=== PATIENT | female | born 1995 | race Asian ===

== ENCOUNTER 2017-10-26 12:28 | Outpatient (CLI) | payer OTHER ==
[2017-10-26 13:34] LABS: ADD UMIC NO; UR ASCORBIC ACID NEGATIVE (NEGATIVE); UR BACTERIA FEW /HPF (NONE SEEN); UR BILIRUBIN (Dip) NEGATIVE (NEGATIVE); UR BLOOD (Dip) NEGATIVE (NEGATIVE); UR CLARITY SLIGHTLY CLOUDY (CLEAR); UR COLOR YELLOW (YELLOW); UR GLUCOSE (Dip) NEGATIVE (NEGATIVE); UR KETONES (Dip) NEGATIVE (NEGATIVE); UR LEUKOCYTE ESTERASE (Dip) NEGATIVE Leu/ul (NEGATIVE); UR NITRITE (Dip) NEGATIVE (NEGATIVE); UR RBC 1 /HPF (0-5); UR SPECIFIC GRAVITY (Dip) 1.009 (1.003-1.030); UR TOTAL PROTEIN (Dip) NEGATIVE (NEGATIVE); UR UROBILINOGEN (Dip) NEGATIVE (NEGATIVE); UR WBC 1 /HPF (0-5)
== END 2017-10-26 18:22 | disposition home or self-care (01) ==
LOC: OBT 12:28 → L-D 12:32 → OBT 18:22
DX: O62.9 Abnormality of forces of labor, unspecified (principal); Z3A.38 38 weeks gestation of pregnancy
CPT/HCPCS: 76818; 81001; 81003

== ENCOUNTER 2017-10-27 06:47 | Inpatient (IN) | payer OTHER ==
[2017-10-27] MEDS ORDERED: OXYTOCIN 30 UNITS/LR 500 ML IV (07:30)
[2017-10-27] MEDS ORDERED: LIDOCAINE 1% (MPF) 30 ML INJ INJ (07:30)
[2017-10-27] MEDS ORDERED: IBUPROFEN 600 MG TAB PO (07:30)
[2017-10-27] MEDS ORDERED: BUTORPHANOL 2 MG INJ IV (07:30)
[2017-10-27] MEDS ORDERED: MISOPROSTOL 200 MCG TAB PR (07:30)
[2017-10-27] MEDS ORDERED: METHYLERGONOVINE 0.2 MG INJ IM (07:30)
[2017-10-27] MEDS ORDERED: CARBOPROST 250 MCG INJ IM (07:30)
[2017-10-27] MEDS ORDERED: AMPICILLIN 2 GM/NS (PMX) 100 ML (07:40)
[2017-10-27] MEDS: LACTATED RINGER'S 1,000 ML IV ×3 (07:59→18:30)
[2017-10-27] MEDS: AMPICILLIN 2 GM/NS (PMX) 100 ML IV (08:00)
[2017-10-27 08:12] LABS: ADD MAN DIFF? NO
[2017-10-27 08:16] LABS: ABNORMAL IP MESSAGE 1; BASOPHIL # 0.1 10^3/ul (0.0-0.1); BASOPHILS % 0.7 % (0.0-2.0); EOSINOPHILS # 0.1 10^3/ul (0.0-0.5); EOSINOPHILS % 0.5 % (0.0-7.0); HEMOGLOBIN 12.8 g/dl (12.0-16.0); LYMPHOCYTES # 2.3 10^3/ul (0.8-2.9); LYMPHOCYTES % 12.5 % (15.0-51.0); MEAN CORPUSCULAR HEMOGLOBIN 29.8 pg (29.0-33.0); MEAN CORPUSCULAR HGB CONC 33.7 g/dl (32.0-37.0); MEAN CORPUSCULAR VOLUME 88.6 fl (82.0-101.0); MEAN PLATELET VOLUME 10.2 fl (7.4-10.4); MONOCYTE # 1.2 10^3/ul (0.3-0.9); MONOCYTES % 6.3 % (0.0-11.0); NEUTROPHIL # 13.5 10^3/ul (1.6-7.5); NEUTROPHILS % 74.4 % (39.0-77.0); PLATELET COUNT 241 10^3/UL (140-415); RED BLOOD COUNT 4.29 10^6/ul (4.20-5.40); RED CELL DISTRIBUTION WIDTH 13.6 % (11.5-14.5)
[2017-10-27 08:16] LABS: WHITE BLOOD COUNT 18.2 10^3/ul (4.8-10.8)
[2017-10-27 08:18] LABS: POSITIVE DIFF @See below
[2017-10-27 08:35] LABS: INR 0.84; PROTIME 11.6 Sec (11.9-14.9); PT RATIO 0.9
[2017-10-27 08:36] LABS: PARTIAL THROMBOPLASTIN TIME 29.1 Sec (25.0-35.0)
[2017-10-27] MEDS ORDERED: FENTAnyl 2MCG/ML-ROPIV 0.2% 100 ML (08:52)
[2017-10-27 09:07] LABS: ANISOCYTOSIS 1+ (0-0); BAND NEUTROPHILS #M 0.3 10^3/ul (0.0-0.6); BAND NEUTROPHILS % (M) 2 % (0-4); BASOPHIL #M 0.1 10^3/ul (0.0-0.0); BASOPHILS % (M) 1 % (0-2); EOSINOPHILS % (M) 1 % (0-7); GIANT THROMBO% (M) 2 % (0-0); LYMPHOCYTES #M 1.8 10^3/ul (0.8-2.9); LYMPHOCYTES % (M) 10 % (15-51); MICROCYTOSIS 1+ (0-0); MONOCYTE #M 0.7 10^3/ul (0.3-0.9); MONOCYTES % (M) 4 % (0-11); MYELOCYTES #M 0.5 10^3/ul (0.0-0.0); MYELOCYTES % (M) 3 % (0-0); PLATELET ESTIMATE NORMAL; POLYCHROMASIA 2+ (0-0); REACTIVE LYMPHOCYTES #M 0.1 10^3/ul (0.0-0.0); REACTIVE LYMPHOCYTES% (M) 1 % (0-0); SEG NEUT #M 14.3 10^3/ul (1.6-7.5); SEGMENTED NEUTROPHILS (M) % 78 % (39-77); SMUDGE%M 2 % (0-0)
[2017-10-27 09:23] LABS: HEPATITIS B SURFACE ANTIGEN NEGATIVE (NEGATIVE)
[2017-10-27] MEDS ORDERED: NALOXONE (0.4 MG/ML) INJ IV (09:30)
[2017-10-27 10:27] LABS: AMPHETAMINE/METHAMPHETAMINE Negative (NEGATIVE); BARBITURATES Negative (NEGATIVE); BENZODIAZEPINES Negative (NEGATIVE); CANNABINOIDS Negative (NEGATIVE); COCAINE Negative (NEGATIVE); OPIATES Negative (NEGATIVE)
[2017-10-27] MEDS: AMPICILLIN 1 GM/NS (PMX) 50 ML IV ×2 (12:02→16:00)
[2017-10-27] MEDS: OXYTOCIN 30 UNITS/LR 500 ML IV ×3 (12:17→20:39)
[2017-10-27 15:47] LABS: RAPID PLASMA REAGIN NONREACTIVE (NR)
[2017-10-27] MEDS: FENTAnyl 2MCG/ML-ROPIV 0.2% 100 ML BAG EPI (16:02)
[2017-10-28] MEDS ORDERED: OXYTOCIN 30 UNITS/LR 500 ML IV
[2017-10-28] MEDS ORDERED: HYDROCODONE/APAP (5/325) TAB PO
[2017-10-28] MEDS ORDERED: CARBOPROST 250 MCG INJ IM
[2017-10-28] MEDS ORDERED: DIBUCAINE 1% 30 GM OINT PR
[2017-10-28] MEDS ORDERED: METHYLERGONOVINE 0.2 MG INJ IM
[2017-10-28] MEDS ORDERED: MISOPROSTOL 200 MCG TAB PR
[2017-10-28] MEDS ORDERED: ACETAMINOPHEN 325 MG TAB PO
[2017-10-28] MEDS: BENZOCAINE 20% 56 ML SPRAY TOP (00:25)
[2017-10-28] MEDS: WITCH HAZEL/GLYCERIN PAD PR (00:25)
[2017-10-28] MEDS: LANOLIN 7 GM TUBE TOP (00:26)
[2017-10-28] MEDS: IBUPROFEN 600 MG TAB PO ×4 (00:26→17:31)
[2017-10-28] MEDS: LACTATED RINGER'S 1,000 ML IV* (07:34)
[2017-10-28 07:45] LABS: ADD MAN DIFF? NO
[2017-10-28 07:50] LABS: ABNORMAL IP MESSAGE 1; BASOPHIL # 0.1 10^3/ul (0.0-0.1); BASOPHILS % 0.3 % (0.0-2.0); EOSINOPHILS # 0.1 10^3/ul (0.0-0.5); EOSINOPHILS % 0.3 % (0.0-7.0); HEMATOCRIT 34.9 % (37.0-47.0); HEMOGLOBIN 11.9 g/dl (12.0-16.0); LYMPHOCYTES # 2.5 10^3/ul (0.8-2.9); LYMPHOCYTES % 10.4 % (15.0-51.0); MEAN CORPUSCULAR HEMOGLOBIN 30.2 pg (29.0-33.0); MEAN CORPUSCULAR HGB CONC 34.1 g/dl (32.0-37.0); MEAN CORPUSCULAR VOLUME 88.6 fl (82.0-101.0); MONOCYTE # 1.9 10^3/ul (0.3-0.9); MONOCYTES % 7.9 % (0.0-11.0); NEUTROPHIL # 18.8 10^3/ul (1.6-7.5); NEUTROPHILS % 77.6 % (39.0-77.0); PLATELET COUNT 201 10^3/UL (140-415); RED BLOOD COUNT 3.94 10^6/ul (4.20-5.40); RED CELL DISTRIBUTION WIDTH 13.5 % (11.5-14.5)
[2017-10-28 07:50] LABS: WHITE BLOOD COUNT 24.3 10^3/ul (4.8-10.8)
[2017-10-28 07:55] LABS: POSITIVE DIFF @See below
[2017-10-28] MEDS: SENNA/DOCUSATE NA (8.6MG/50MG) TAB PO (09:58)
[2017-10-29] MEDS: IBUPROFEN 600 MG TAB PO ×3 (00:20→11:51)
[2017-10-29] MEDS: SENNA/DOCUSATE NA (8.6MG/50MG) TAB PO ×2 (00:20→09:00)
[2017-10-29 07:34] LABS: ABNORMAL IP MESSAGE 1; HEMATOCRIT 31.1 % (37.0-47.0); HEMOGLOBIN 10.4 g/dl (12.0-16.0); MEAN CORPUSCULAR HEMOGLOBIN 29.8 pg (29.0-33.0); MEAN CORPUSCULAR HGB CONC 33.4 g/dl (32.0-37.0); MEAN CORPUSCULAR VOLUME 89.1 fl (82.0-101.0); MEAN PLATELET VOLUME 10.1 fl (7.4-10.4); PLATELET COUNT 188 10^3/UL (140-415); RED BLOOD COUNT 3.49 10^6/ul (4.20-5.40); RED CELL DISTRIBUTION WIDTH 13.4 % (11.5-14.5)
[2017-10-29 07:34] LABS: WHITE BLOOD COUNT 15.9 10^3/ul (4.8-10.8)
[2017-10-29 07:41] LABS: ADD MAN DIFF? YES; POSITIVE DIFF @See below
[2017-10-29 09:12] LABS: BAND NEUTROPHILS #M 1.4 10^3/ul (0.0-0.6); BAND NEUTROPHILS % (M) 9 % (0-4); BASOPHIL #M 0.1 10^3/ul (0.0-0.0); BASOPHILS % (M) 1 % (0-2); EOSINOPHILS % (M) 1 % (0-7); GIANT THROMBO% (M) 1 % (0-0); LYMPHOCYTES % (M) 19 % (15-51); MONOCYTE #M 0.3 10^3/ul (0.3-0.9); MONOCYTES % (M) 2 % (0-11); MYELOCYTES #M 0.3 10^3/ul (0.0-0.0); MYELOCYTES % (M) 2 % (0-0); PLATELET ESTIMATE NORMAL; REACTIVE LYMPHOCYTES #M 0.6 10^3/ul (0.0-0.0); REACTIVE LYMPHOCYTES% (M) 4 % (0-0); SEG NEUT #M 10.1 10^3/ul (1.6-7.5); SEGMENTED NEUTROPHILS (M) % 62 % (39-77); SMUDGE%M 2 % (0-0)
[2017-10-29] MEDS: INFLUENZA VIRUS VACCINE 0.5 ML (DISPENSING) IM* (11:52)
[2017-10-29] MEDS: DIPHTH/TET/ACEL PERTUSS (ADULT) 0.5 ML VIAL IM* (13:26)
== END 2017-10-29 14:55 | disposition home or self-care (01) | DRG 775 ==
LOC: OBT 06:47 → L-D 06:47 → OBT 07:15 → L-D 07:15 → PP1 23:09
PROVIDERS: Obstetrics & Gynecology
PROC: 10E0XZZ Delivery of Products of Conception, External Approach (ICD-10-PCS; principal; 2017-10-27)
PROC: 0HQ9XZZ Repair Perineum Skin, External Approach (ICD-10-PCS; 2017-10-27)
PROC: 3E033VJ Introduction of Other Hormone into Peripheral Vein, Percutaneous Approach (ICD-10-PCS; 2017-10-27)
DX: O70.1 Second degree perineal laceration during delivery (principal); Z37.0 Single live birth; Z3A.38 38 weeks gestation of pregnancy
CPT/HCPCS: 62319; 80307; 85025; 85610; 85730; 86592; 86850; 86900; 86901; 87340